=== PATIENT | female | born 1995 | race American Indian/Alaskan Native ===

== ENCOUNTER 2019-10-16 15:37 | Emergency (ER) | payer OTHER ==
[2019-10-16 17:58] VITALS: BP 114/70
--- NOTE | 2019-10-16 18:00 | Event Note ---
ED Screening Note Date of service: 10/16/19 Time: 17:58 ED Screening Note: 24 sided chest pain that worsened with movement and [id number] female presents ED complaining left She denies falls or trauma or injuries or strenuous activities This initial assessment/diagnostic orders/clinical plan/treatment(s) is/are subject to change based on patients health status, clinical progression and re- assessment by fellow clinical providers in the ED. Further treatment and workup at subsequent clinical providers discretion. Patient/guardian urged not to elope from the ED as their condition may be serious if not clinically assessed and managed. Initial orders include: Chest x-ray
--- NOTE | 2019-10-16 18:27 | XRay Report ---
CHEST 2 VIEWS INDICATION / CLINICAL INFORMATION: Chest pain and shortness of breath.. COMPARISON: None available. FINDINGS: SUPPORT DEVICES: None. HEART / MEDIASTINUM: No significant abnormality. LUNGS / PLEURA: No significant pulmonary or pleural abnormality. No pneumothorax. ADDITIONAL FINDINGS: No significant additional findings. IMPRESSION: 1. No acute findings. Signer Name: Dewayne Monk MD Signed: 10/16/2019 6:22 PM Workstation Name: [id number]
[2019-10-16] MEDS ORDERED: IBUPROFEN 600 MG TAB PO ONE (21:02)
[2019-10-16] MEDS ORDERED: ACETAMINOPHEN 500 MG TAB PO ONE (21:02)
--- NOTE | 2019-10-16 21:47 | Emergency Department Report ---
ED Back Pain/Injury HPI - General Chief Complaint: Back Pain/Injury Stated Complaint: BODY PAIN Source: patient Limitations: No Limitations - History of Present Illness Initial Comments: Patient is a 24-year-old -Stateless female with a history of hyperthyroidism and not on any medications presents to the ED with acute onset persistent nontraumatic left posterior midthoracic pain persistently for 24 hours. Patient states that the pain is worse with movement, palpation or deep inhalation. Patient denies traumatic injury, heavy lifting, fall, nausea, vomiting, headache, dizziness, syncope, cough, dizziness, chest pain, shortness of breath, abdominal pain, neck pain, numbness and tingling or weakness of upper and lower extremities bilaterally, hematuria, dysuria, urinary frequency and urgency, fever, chills or dizziness. MD Complaint: back pain (posterior mid thoracic pain), other (Pleuritic left posterior mid back pain) -: Sudden, hour(s) (24) Similar Symptoms Previously: No Place: home Radiation: none Severity: severe Severity scale (0 -10): 7 Quality: sharp, aching Consistency: constant Improves With: none Worsens With: movement, deep breaths/cough Context: unknown Associated Symptoms: denies other symptoms. denies: confusion, weakness, chest pain, numbness, difficulty walking, cough, difficulty urinating, fever/chills, constipation, headaches, abdominal pain, loss of appetite, malaise, nausea/vomiting, rash, seizure, shortness of breath, syncope, other - Related Data Previous Rx's Medication Instructions Recorded Last Taken Type Cyclobenzaprine [Flexeril] 10 mg PO Q12H PRN #15 tablet 10/16/19 Unknown Rx Naproxen 500 mg PO Q12H PRN #30 tablet 10/16/19 Unknown Rx Allergies Allergy/AdvReac Type Severity Reaction Status Date / Time No Known Allergies Allergy Verified 10/16/19 18:00 ED Review of Systems ROS: Stated complaint: BODY PAIN Other details as noted in HPI Constitutional: denies: chills, fever Eyes: denies: eye pain, eye discharge, vision change ENT: denies: ear pain, throat pain Respiratory: denies: cough, shortness of breath, wheezing Cardiovascular: denies: chest pain, palpitations Endocrine: no symptoms reported Gastrointestinal: denies: abdominal pain, nausea, diarrhea Genitourinary: denies: urgency, dysuria, discharge Musculoskeletal: back pain ( left sided posterior mid thoracic pain), arthralgia (left-sided mid posterior thoracic pain). denies: joint swelling Skin: denies: rash, lesions Neurological: denies: headache, weakness, paresthesias Psychiatric: denies: anxiety, depression Hematological/Lymphatic: denies: easy bleeding, easy bruising ED Past Medical Hx - Past Medical History Previous Medical History?: Yes Additional medical history: hyperthyroidism - Surgical History Past Surgical History?: No - Social History Smoking Status: Never Smoker Substance Use Type: None - Medications Home Medications: Home Medications Medication Instructions Recorded Confirmed Last Taken Type Cyclobenzaprine [Flexeril] 10 mg PO Q12H PRN #15 tablet 10/16/19 Unknown Rx Naproxen 500 mg PO Q12H PRN #30 tablet 10/16/19 Unknown Rx ED Physical Exam - General Limitations: No Limitations General appearance: alert, in no apparent distress - Head Head exam: Present: atraumatic, normocephalic, normal inspection - Eye Eye exam: Present: normal appearance, PERRL, EOMI Pupils: Present: normal accommodation - ENT ENT exam: Present: normal exam, normal orophraynx, mucous membranes moist, TM's normal bilaterally, normal external ear exam - Neck Neck exam: Present: normal inspection, full ROM. Absent: tenderness - Respiratory Respiratory exam: Present: normal lung sounds bilaterally. Absent: respiratory distress, wheezes, rales, rhonchi, stridor, chest wall tenderness, accessory muscle use, decreased breath sounds, prolonged expiratory - Cardiovascular Cardiovascular Exam: Present: regular rate, normal rhythm, normal heart sounds. Absent: systolic murmur, diastolic murmur, rubs, gallop - GI/Abdominal GI/Abdominal exam: Present: soft, normal bowel sounds. Absent: tenderness, guarding, rebound, hyperactive bowel sounds, hypoactive bowel sounds - Extremities Exam Extremities exam: Present: normal inspection, full ROM, normal capillary refill - Back Exam Back exam: Present: normal inspection, full ROM, tenderness (Palpable left-sided mid posterior thoracic tenderness), muscle spasm, paraspinal tenderness - Neurological Exam Neurological exam: Present: alert, oriented X3, CN II-XII intact, normal gait, reflexes normal - Psychiatric Psychiatric exam: Present: normal affect, normal mood - Skin Skin exam: Present: warm, dry, intact, normal color. Absent: rash ED Course Vital Signs 10/16/19 16:01 Temperature 98.6 F Pulse Rate 73 Respiratory 16 Rate Blood Pressure 114/70 O2 Sat by Pulse 99 Oximetry ED Medical Decision Making - Radiology Data Radiology results: report reviewed, image reviewed Chest x-ray shows no acute cardiopulmonary abnormalities or pneumonitis. - Medical Decision Making This is a 24-year-old -Stateless female with a history of hyperthyroidism and not on any medications presents to the ED with acute onset persistent nontraumatic left posterior midthoracic pain persistently for 24 hours. Patient states that the pain is worse with movement, palpation or deep inhalation. In the ED, patient is alert and oriented x3 and is not in any distress. Patient was treated for pain in the ED and chest x-ray shows no acute cardiopulmonary abnormalities or pneumonitis. Based on patient's history and physical exam findings, patient symptoms are likely due to muscle strain or muscle spasm of her mid posterior thoracic area. Patient will discharge home on pain medications and muscle relaxants and was advised to follow-up with her primary care physician in 5 to 7 days for reevaluation or return to the ED immediately if symptoms get worse. - Differential Diagnosis muscle strain; pneumonia; Muscle spasm; bursitis; tendonitis Critical care attestation.: If time is entered above; I have spent that time in minutes in the direct care of this critically ill patient, excluding procedure time. ED Disposition Clinical Impression: Strain of muscle and tendon of back wall of thorax, initial encounter Muscle strain of chest wall Qualifiers: Encounter type: initial encounter Qualified Code(s): S29.011A - Strain of muscle and tendon of front wall of thorax, initial encounter Sprain of left shoulder girdle Qualifiers: Encounter type: initial encounter Qualified Code(s): S43.92XA - Sprain of unspecified parts of left shoulder girdle, initial encounter Disposition: -01 TO HOME OR SELFCARE Is pt being admited?: No Does the pt Need Aspirin: No Condition: Stable Instructions: Muscle Strain (ED), Muscle Spasm (ED), Back Pain (ED) Additional Instructions: Take medication with food, drink plenty of fluids and follow-up with your primary care physician in 7 to 10 days for reevaluation. Return to the ED immediately if symptoms get worse. Prescriptions: Cyclobenzaprine [Flexeril] 10 mg PO Q12H PRN #15 tablet PRN Reason: Muscle Spasm Naproxen 500 mg PO Q12H PRN #30 tablet PRN Reason: Pain , Severe (7-10) Referrals: [facility] [Provider Group] - 7-10 days Time of Disposition: 21:44 Print Language: PASHTO
== END 2019-10-16 22:00 | disposition home or self-care (01) ==
LOC: ED 15:37
DX: S29.011A Strain of muscle and tendon of front wall of thorax, initial encounter (principal); S43.92XA Sprain of unspecified parts of left shoulder girdle, initial encounter; S29.012A Strain of muscle and tendon of back wall of thorax, initial encounter; X58.XXXA Exposure to other specified factors, initial encounter; Y93.89 Activity, other specified; Y92.89 Other specified places as the place of occurrence of the external cause; Y99.8 Other external cause status
CPT/HCPCS: 71046; 99283